=== PATIENT | female | born 1965 | race Caucasian/White ===

== ENCOUNTER 2018-12-05 23:44 | Emergency (ER) | payer MEDICAID, SELFPAY ==
[~2018-12-05] VITALS: Ht 154.9 cm; Wt 77.0 kg
[2018-12-06 00:35] LABS: BASOPHILS # (AUTO) 0.08 x10^3/uL (0-0.1); BASOPHILS % (AUTO) 1 % (0-1); EOSINOPHILS # (AUTO) 0.12 x10^3/uL (0-0.4); EOSINOPHILS % (AUTO) 1 % (1-7); LYMPHOCYTES % (AUTO) 15 % (22-44); MD NO; MEAN CORPUSCULAR VOLUME 90.7 fL (80-100); MEAN PLATELET VOLUME 7.3 fL (7.4-10.4); MONOCYTES # (AUTO) 0.71 x10^3/uL (0.2-0.8); MONOCYTES % (AUTO) 5 % (2-9); NEUTROPHILS # (AUTO) 11.82 x10^3/uL (1.8-6.8); NEUTROPHILS % (AUTO) 79 % (42-75); PLATELET COUNT 411 x10^3/uL (130-400); RED BLOOD COUNT 5.12 x10^6/uL (3.82-5.3); RED CELL DISTRIBUTION WIDTH 14.5 % (9.6-15.2)
[2018-12-06 00:47] LABS: ALANINE AMINOTRANSFERASE 37 U/L (12-78); ALBUMIN 3.6 g/dL (3.4-5.0); ANION GAP 7 mmol/L (5-15); CALCIUM 8.7 mg/dL (8.5-10.1); CHLORIDE 110 mmol/L (98-107); CREATININE 0.86 mg/dL (0.55-1.02)
[2018-12-06 00:49] LABS: ALKALINE PHOSPHATASE 126 U/L (45-117); BILIRUBIN,TOTAL 0.3 mg/dL (0.2-1.0); CREATINE KINASE, TOTAL 67 U/L (26-192); TOTAL PROTEIN 6.9 g/dL (6.4-8.2)
[2018-12-06 00:53] LABS: HCG UR SG 1.009 (1.003-1.030)
[2018-12-06 00:58] LABS: CULTURE INDICATED? YES; MICROSCOPIC INDICATED
[2018-12-06 01:15] LABS: AMPHETAMINE SCREEN, URINE Negative (Negative); BARBITURATE SCREEN, URINE Negative (Negative); BENZODIAZEPINE SCREEN, URINE Negative (Negative); CANNABINOID SCREEN, URINE Negative (Negative); COCAINE SCREEN, URINE Negative (Negative); METHADONE SCREEN, URINE Negative (Negative); OPIATE SCREEN, URINE Negative (Negative)
[2018-12-06 01:20] VITALS: BP 141/82
[2018-12-06] MEDS ORDERED: FOSFOMYCIN 3 GM PACKET PO ONE (01:30)
[2018-12-06] MEDS ORDERED: FOSFOMYCIN 3 GM PACKET ONE (01:33)
== END 2018-12-06 02:01 | disposition home or self-care (01) ==
LOC: ED 23:59
DX: M79.10 Myalgia, unspecified site (principal); R30.0 Dysuria; F17.200 Nicotine dependence, unspecified, uncomplicated
CPT/HCPCS: 36415; 80053; 80307; 81001; 81025; 82550; 85025; 87086; 99283

== ENCOUNTER 2018-12-08 08:45 | Emergency (ER) | payer MEDICAID ==
[~2018-12-08] VITALS: Ht 152.4 cm; Wt 80.0 kg
--- NOTE | 2018-12-08 09:21 | NUR ---
PT TO ED FOR BILATERAL FLANK PAIN, SORE THROAT AND FULLNESS AND RINGING IN BOTH EARS X2 WEEKS. PT CONNECTED TO MONITOR. VSS. PT UP SELF WITH STEADY GAIT TO PROVID EUA SAMPLE. AWAITING EDMD ASSESSMENT.
--- NOTE | 2018-12-08 09:50 | NUR ---
PT RESTING IN ROOM. VSS. NO NEEDS EXPRESSED.CALL LIGHT WITHIN REACH. LABS DRAWN. UA COLLECTED AND SENT. AWAITING RESULTS.
[2018-12-08 09:56] LABS: MICROSCOPIC NOT IND
[2018-12-08 10:00] LABS: CULTURE INDICATED? NO
[2018-12-08 10:03] LABS: ALANINE AMINOTRANSFERASE 39 U/L (12-78); ALBUMIN 3.7 g/dL (3.4-5.0); ANION GAP 7 mmol/L (5-15); BASOPHILS # (AUTO) 0.07 x10^3/uL (0-0.1); BASOPHILS % (AUTO) 1 % (0-1); CALCIUM 8.9 mg/dL (8.5-10.1); CHLORIDE 109 mmol/L (98-107); CREATININE 0.77 mg/dL (0.55-1.02); EOSINOPHILS # (AUTO) 0.05 x10^3/uL (0-0.4); EOSINOPHILS % (AUTO) 1 % (1-7); LYMPHOCYTES # (AUTO) 1.57 x10^3/uL (1-3.4); LYMPHOCYTES % (AUTO) 17 % (22-44); MD NO; MEAN CORPUSCULAR HEMOGLOBIN 28.9 pg (27.0-34.8); MEAN CORPUSCULAR VOLUME 90.5 fL (80-100); MONOCYTES # (AUTO) 0.42 x10^3/uL (0.2-0.8); MONOCYTES % (AUTO) 5 % (2-9); NEUTROPHILS # (AUTO) 6.96 x10^3/uL (1.8-6.8); NEUTROPHILS % (AUTO) 77 % (42-75); PLATELET COUNT 412 x10^3/uL (130-400); RED CELL DISTRIBUTION WIDTH 14.6 % (9.6-15.2)
[2018-12-08 10:05] LABS: ALKALINE PHOSPHATASE 115 U/L (45-117); BILIRUBIN,TOTAL 0.4 mg/dL (0.2-1.0); TOTAL PROTEIN 6.6 g/dL (6.4-8.2)
--- NOTE | 2018-12-08 10:12 | NUR ---
all results back at this time. chart up for recheck.
--- NOTE | 2018-12-08 10:35 | NUR ---
PT TO CT
--- NOTE | 2018-12-08 10:47 | NUR ---
PT BACK FROM CT
[2018-12-08 10:49] VITALS: BP 139/72
--- NOTE | 2018-12-08 10:50 | NUR ---
PT UP SELF TO RR WITH STEADY GAIT. PT NOW RESTING IN [facility]. VSS. NO NEEDS EXPRESSED. AWAITING CT RESULTS. CALL LIGHT WITHIN REACH.
== END 2018-12-08 11:55 | disposition home or self-care (01) ==
LOC: ED 11:49
DX: S39.012A Strain of muscle, fascia and tendon of lower back, initial encounter (principal); F17.210 Nicotine dependence, cigarettes, uncomplicated; X58.XXXA Exposure to other specified factors, initial encounter; Y93.89 Activity, other specified; Y92.89 Other specified places as the place of occurrence of the external cause; Y99.8 Other external cause status
CPT/HCPCS: 36415; 74176; 80053; 81003; 85025; 99284

== ENCOUNTER 2018-12-10 23:15 | Emergency (ER) | payer MEDICAID ==
[~2018-12-10] VITALS: Ht 154.9 cm; Wt 81.2 kg
[2018-12-11] MEDS ORDERED: ONDANSETRON ODT 4 MG PO ONE
[2018-12-11] MEDS ORDERED: ONDANSETRON ODT 4 MG ONE (00:17)
[2018-12-11 00:29] LABS: BASOPHILS # (AUTO) 0.03 x10^3/uL (0-0.1); BASOPHILS % (AUTO) 0 % (0-1); EOSINOPHILS % (AUTO) 2 % (1-7); LYMPHOCYTES # (AUTO) 2.13 x10^3/uL (1-3.4); LYMPHOCYTES % (AUTO) 23 % (22-44); MD NO; MEAN CORPUSCULAR HEMOGLOBIN 29.8 pg (27.0-34.8); MEAN CORPUSCULAR HGB CONC 32.7 g/dL (32.4-35.8); MEAN CORPUSCULAR VOLUME 90.9 fL (80-100); MEAN PLATELET VOLUME 7.3 fL (7.4-10.4); MONOCYTES # (AUTO) 0.62 x10^3/uL (0.2-0.8); MONOCYTES % (AUTO) 7 % (2-9); NEUTROPHILS # (AUTO) 6.43 x10^3/uL (1.8-6.8); NEUTROPHILS % (AUTO) 68 % (42-75); PLATELET COUNT 401 x10^3/uL (130-400); RED CELL DISTRIBUTION WIDTH 14.8 % (9.6-15.2)
--- NOTE | 2018-12-11 00:30 | NUR ---
PT MEDICATED PER EMAR FOR NAUSEA.
[2018-12-11 00:42] LABS: ALANINE AMINOTRANSFERASE 36 U/L (12-78); ALBUMIN 3.4 g/dL (3.4-5.0); ANION GAP 7 mmol/L (5-15); CALCIUM 8.8 mg/dL (8.5-10.1); CHLORIDE 109 mmol/L (98-107); CREATININE 0.91 mg/dL (0.55-1.02)
[2018-12-11 00:46] LABS: ALKALINE PHOSPHATASE 117 U/L (45-117); BILIRUBIN,TOTAL 0.1 mg/dL (0.2-1.0); TOTAL PROTEIN 6.4 g/dL (6.4-8.2); TROPONIN I < 0.015 ng/mL (0.000-0.045)
[2018-12-11] MEDS ORDERED: CEFDINIR 300 MG CAPSULE ONE (00:59)
[2018-12-11] MEDS ORDERED: CEFDINIR 300 MG CAPSULE PO ONE (01:00)
[2018-12-11] MEDS ORDERED: DEXAMETHASONE 4 MG TABLET PO ONE (01:00)
[2018-12-11] MEDS ORDERED: DEXAMETHASONE 4 MG TABLET ONE (01:01)
[2018-12-11 01:19] VITALS: BP 140/67
--- NOTE | 2018-12-11 01:19 | NUR ---
Patient/Caregiver given discharge instructions and they have confirmed that they understand the instructions. Patient ambulatory with steady gait.
== END 2018-12-11 01:21 | disposition home or self-care (01) ==
LOC: ED 23:53
DX: J18.9 Pneumonia, unspecified organism (principal); F17.200 Nicotine dependence, unspecified, uncomplicated; Z86.19 Personal history of other infectious and parasitic diseases
CPT/HCPCS: 36415; 70450; 71046; 80053; 83690; 83880; 84484; 85025; 93005; 99284; Q0162

== ENCOUNTER 2019-02-08 07:58 | Emergency (ER) | payer MEDICAID ==
[~2019-02-08] VITALS: Ht 152.4 cm; Wt 75.0 kg
--- NOTE | 2019-02-08 08:08 | NUR ---
PT AMBULATORY WITH STEADY GAIT TO ROOM FROM TRIAGE AT THIS TIME. CHANGING INTO GOWN.
--- NOTE | 2019-02-08 08:11 | NUR ---
PT HERE TODAY FOR CP. STATES IT STARTED AFTER A PAIN SHOT SHE RECIEVED LAST NIGHT. STATES IT STARTS ON RIGHT SIDE OF CHEST, GOES DOWN STOMACH, AND SHOOTS DOWN LEG. PT RESTING ON GURNEY. VSS. CHAUDHARI. MARIA G AT BEDSIDE TO ASSESS PT.
--- NOTE | 2019-02-08 08:17 | NUR ---
PT STATES SHE DOES NOT KNOW WHAT THE "PAIN SHOT" SHE RECIEVED WAS CALLED.
--- NOTE | 2019-02-08 08:20 | NUR ---
requested medical records from [facility]
--- NOTE | 2019-02-08 08:21 | NUR ---
PT GIVEN WATER AT THIS TIME. DRINKING WITHOUT A PROBLEM. DENIES NAUSEA. RESTING ON GURNEY. NADN. VSS.
--- NOTE | 2019-02-08 08:31 | NUR ---
PT GOING TO RADIOLOGY AT THIS TIME.
[2019-02-08 08:35] LABS: BASOPHILS # (AUTO) 0.06 x10^3/uL (0-0.1); BASOPHILS % (AUTO) 1 % (0-1); EOSINOPHILS # (AUTO) 0.06 x10^3/uL (0-0.4); EOSINOPHILS % (AUTO) 1 % (1-7); LYMPHOCYTES # (AUTO) 1.72 x10^3/uL (1-3.4); LYMPHOCYTES % (AUTO) 21 % (22-44); MD NO; MEAN CORPUSCULAR HEMOGLOBIN 29.7 pg (27.0-34.8); MEAN CORPUSCULAR HGB CONC 32.9 g/dL (32.4-35.8); MEAN CORPUSCULAR VOLUME 90.4 fL (80-100); MEAN PLATELET VOLUME 7.2 fL (7.4-10.4); MONOCYTES # (AUTO) 0.47 x10^3/uL (0.2-0.8); MONOCYTES % (AUTO) 6 % (2-9); NEUTROPHILS # (AUTO) 5.89 x10^3/uL (1.8-6.8); NEUTROPHILS % (AUTO) 72 % (42-75); PLATELET COUNT 353 x10^3/uL (130-400); RED BLOOD COUNT 4.85 x10^6/uL (3.82-5.3); RED CELL DISTRIBUTION WIDTH 13.9 % (9.6-15.2)
--- NOTE | 2019-02-08 08:36 | NUR ---
PT BACK FROM CT AT THIS TIME. RESTING ON OWEN. [place]. DENIES NEEDS.
[2019-02-08 08:46] LABS: ALBUMIN 3.6 g/dL (3.4-5.0); CALCIUM 8.4 mg/dL (8.5-10.1); CREATININE 0.77 mg/dL (0.55-1.02)
[2019-02-08 08:52] LABS: CHLORIDE 114 mmol/L (98-107)
[2019-02-08 08:54] LABS: ANION GAP 7 mmol/L (5-15)
[2019-02-08 09:01] VITALS: BP 119/76
--- NOTE | 2019-02-08 09:13 | NUR ---
received records from [facility]
== END 2019-02-08 09:24 | disposition home or self-care (01) ==
LOC: ED 08:36
DX: S29.012A Strain of muscle and tendon of back wall of thorax, initial encounter (principal); Z86.19 Personal history of other infectious and parasitic diseases; X58.XXXA Exposure to other specified factors, initial encounter; Y93.89 Activity, other specified; Y92.89 Other specified places as the place of occurrence of the external cause; Y99.8 Other external cause status
CPT/HCPCS: 36415; 71046; 80048; 82040; 85025; 93005; 99284

== ENCOUNTER 2019-02-14 21:05 | Emergency (ER) | payer SELFPAY ==
[~2019-02-14] VITALS: Ht 152.4 cm; Wt 76.1 kg
[2019-02-15 00:41] VITALS: BP 129/69
== END 2019-02-15 00:50 | disposition home or self-care (01) ==
LOC: ED 22:01
DX: R42 Dizziness and giddiness (principal); Z76.0 Encounter for issue of repeat prescription; F17.200 Nicotine dependence, unspecified, uncomplicated
CPT/HCPCS: 36415; 71046; 80048; 81003; 82040; 84484; 85025; 93005; 99284

== ENCOUNTER 2019-02-21 00:20 | Emergency (ER) | payer MEDICAID ==
[~2019-02-21] VITALS: Ht 152.4 cm; Wt 75.5 kg
[2019-02-21 00:26] VITALS: BP 120/70
== END 2019-02-21 00:47 | disposition home or self-care (01) ==
LOC: ED 00:36
DX: F41.9 Anxiety disorder, unspecified (principal); Z53.21 Procedure and treatment not carried out due to patient leaving prior to being seen by health care provider

== ENCOUNTER 2019-02-25 02:23 | Emergency (ER) | payer MEDICAID ==
[~2019-02-25] VITALS: Ht 152.4 cm; Wt 75.0 kg
[2019-02-25 02:25] VITALS: BP 155/83
== END 2019-02-25 04:05 | disposition home or self-care (01) ==
LOC: ED 03:59
DX: F19.10 Other psychoactive substance abuse, uncomplicated (principal); R07.89 Other chest pain; Z72.9 Problem related to lifestyle, unspecified; Z86.19 Personal history of other infectious and parasitic diseases
CPT/HCPCS: 93005; 99283

== ENCOUNTER 2019-07-02 15:19 | Emergency (ER) | payer MEDICAID ==
[~2019-07-02] VITALS: Ht 152.4 cm; Wt 77.6 kg
--- NOTE | 2019-07-02 15:21 | NUR ---
PHLEBOTOMIST LAB ASSISTANT: NIL X 1
[2019-07-02 15:33] VITALS: BP 151/91
[2019-07-02] MEDS ORDERED: LORazepam 1MG TABLET PO ONE (16:00)
[2019-07-02] MEDS ORDERED: LORazepam 1MG TABLET ONE (16:23)
--- NOTE | 2019-07-02 16:29 | NUR ---
MEDICATED FOR ANXIETY NOTED ON MAR
--- NOTE | 2019-07-02 17:31 | NUR ---
PT LESS ANXIOUS. DISCHARGE GIVEN. AMBULATED TO DISCHARGE WINDOW, STEADY GAIT
== END 2019-07-02 17:33 | disposition home or self-care (01) ==
LOC: ED 17:10
DX: F41.1 Generalized anxiety disorder (principal); F17.200 Nicotine dependence, unspecified, uncomplicated; F43.10 Post-traumatic stress disorder, unspecified
CPT/HCPCS: 99283

== ENCOUNTER 2019-07-25 07:14 | Emergency (ER) | payer MEDICAID ==
[~2019-07-25] VITALS: Ht 152.4 cm; Wt 77.4 kg
[2019-07-25 07:23] VITALS: BP 139/88
[2019-07-25] MEDS ORDERED: LORazepam 1MG TABLET ONE (07:55)
[2019-07-25] MEDS ORDERED: LORazepam 1MG TABLET PO ONE (08:00)
--- NOTE | 2019-07-25 08:00 | NUR ---
PT LAYING ON GURNEY RESTLESS & ANXIOUS- MEDICATED PER EMAR, RESPONDS TO STAFF QUESTIONS, COMFORT MEASURES PROVIDED, CALL LIGHT WITHIN REACH.
--- NOTE | 2019-07-25 08:30 | NUR ---
PT DEVON COURTNEY.
== END 2019-07-25 08:40 | disposition home or self-care (01) ==
LOC: ED 08:30
DX: F41.1 Generalized anxiety disorder (principal); Z72.9 Problem related to lifestyle, unspecified; Z87.01 Personal history of pneumonia (recurrent); Z86.19 Personal history of other infectious and parasitic diseases
CPT/HCPCS: 93005; 99283

== ENCOUNTER 2019-12-26 15:26 | Emergency (ER) | payer MEDICAID ==
[~2019-12-26] VITALS: Ht 157.5 cm; Wt 81.0 kg
[2019-12-26] MEDS ORDERED: PHENAZOPYRIDINE 200 MG TABLET PO ONE (16:00)
[2019-12-26 16:31] LABS: BASOPHILS # (AUTO) 0.01 x10^3/uL (0-0.1); BASOPHILS % (AUTO) 0 % (0-1); EOSINOPHILS # (AUTO) 0.01 x10^3/uL (0-0.4); EOSINOPHILS % (AUTO) 0 % (1-7); LYMPHOCYTES # (AUTO) 0.69 x10^3/uL (1-3.4); LYMPHOCYTES % (AUTO) 9 % (22-44); MD NO; MEAN CORPUSCULAR HEMOGLOBIN 30.3 pg (27.0-34.8); MEAN CORPUSCULAR HGB CONC 33.5 g/dL (32.4-35.8); MEAN CORPUSCULAR VOLUME 90.4 fL (80-100); MEAN PLATELET VOLUME 7.1 fL (7.4-10.4); MONOCYTES # (AUTO) 0.26 x10^3/uL (0.2-0.8); MONOCYTES % (AUTO) 3 % (2-9); NEUTROPHILS # (AUTO) 6.75 x10^3/uL (1.8-6.8); NEUTROPHILS % (AUTO) 88 % (42-75); PLATELET COUNT 316 x10^3/uL (130-400); RED BLOOD COUNT 5.04 x10^6/uL (3.82-5.3); RED CELL DISTRIBUTION WIDTH 14.1 % (9.6-15.2)
--- NOTE | 2019-12-26 16:32 | NUR ---
PT RESTING IN BED, LABS DRAWN, IV STARTED IN LAC, XRAY COMPLETE. AWAITING RESULTS FOR DISPO. PT DENIES ANY NEEDS OR CONCERNS AT THIS TIME, CALL LIGHT IN REACH.
[2019-12-26 16:45] LABS: ALBUMIN 3.4 g/dL (3.4-5.0); ANION GAP 4 mmol/L (5-15); CALCIUM 8.6 mg/dL (8.5-10.1); CHLORIDE 106 mmol/L (98-107)
[2019-12-26 16:46] LABS: CREATININE 0.91 mg/dL (0.55-1.02)
[2019-12-26 17:22] LABS: MICROSCOPIC NOT IND
[2019-12-26 17:44] VITALS: BP 155/96
--- NOTE | 2019-12-26 17:45 | NUR ---
PT UP TO RESTROOM AND BACK WITHOUT ISSUE. GAIT STRONG AND INDEPENDENT. CALL LIGHT IN REACH.
[2019-12-26] MEDS ORDERED: PHENAZOPYRIDINE 200 MG TABLET ONE (18:15)
--- NOTE | 2019-12-26 18:29 | NUR ---
TASK RN: PT MEDICATED PER EMAR. DC EDUCATION PROVIDED, PT DEMONSTRATES UNDERSTANDING. PT AMBULATED STEADILY TO DC WITH RN. TO WALK TO MCC. DRESSED APPROPRIATELY FOR WEATHER
== END 2019-12-26 18:32 | disposition home or self-care (01) ==
LOC: ED 16:00
DX: R30.0 Dysuria (principal); R10.30 Lower abdominal pain, unspecified; R05 Cough; R00.0 Tachycardia, unspecified; F17.200 Nicotine dependence, unspecified, uncomplicated
CPT/HCPCS: 36415; 71045; 80048; 81003; 82040; 83605; 84145; 85025; 87040; 93005; 99285

== ENCOUNTER 2019-12-31 21:26 | Emergency (ER) | payer MEDICAID ==
[~2019-12-31] VITALS: Ht 152.4 cm; Wt 78.0 kg
[2019-12-31 21:27] VITALS: BP 122/68
--- NOTE | 2019-12-31 21:43 | NUR ---
BLOOD CONTROLLED AT TIME OF MD ASSESSMENT. PT TO BE OBSERVED TO WATCH FOR MORE BLEEDING.
--- NOTE | 2019-12-31 22:10 | NUR ---
NO MORE NOSE BLEEDING.
== END 2019-12-31 22:12 | disposition home or self-care (01) ==
LOC: ED 22:11
DX: R04.0 Epistaxis (principal); F17.200 Nicotine dependence, unspecified, uncomplicated
CPT/HCPCS: 99283